=== PATIENT | female | born 1975 | race Caucasian/White ===

== ENCOUNTER → 2020-02-11 08:12 | Outpatient (BNVA) | payer SELFPAY | PROVIDERS: Family Provider Nurse Practitioner Family; Visit Provider Orthopaedic Surgery | DX: S62.306A Unspecified fracture of fifth metacarpal bone, right hand, initial encounter for closed fracture (principal); S62.304A Unspecified fracture of fourth metacarpal bone, right hand, initial encounter for closed fracture; W23.0XXA Caught, crushed, jammed, or pinched between moving objects, initial encounter | CPT/HCPCS: 73130 ==

== ENCOUNTER 2020-02-11 10:00 | Outpatient (CLI) | payer OTHER, SELFPAY | END 2020-02-11 10:01 | LOC: SPT 01-02 04:47 | PROVIDERS: PCP Registered Nurse; Referring Provider Orthopaedic Surgery; Visit Provider Orthopaedic Surgery | DX: Z46.89 Encounter for fitting and adjustment of other specified devices (principal); S62.306D Unspecified fracture of fifth metacarpal bone, right hand, subsequent encounter for fracture with routine healing; S62.304D Unspecified fracture of fourth metacarpal bone, right hand, subsequent encounter for fracture with routine healing; X58.XXXD Exposure to other specified factors, subsequent encounter | CPT/HCPCS: L3984 ==

== ENCOUNTER 2020-12-14 05:52 | Emergency (ER) | payer OTHER, SELFPAY ==
[2020-12-14 05:53] VITALS: BP 114/79; PULSE 86; RESP 15; TEMP 36.7; O2SAT 97; BMI 21.9
--- NOTE | 2020-12-14 06:04 | XR_ITS ---
WS: [id number] Portable AP upright chest, 12/14/2020 Clinical Data: dyspnea/cough Comparison: None. Findings: No nodules, masses or effusions are seen. The heart is normal. The pulmonary vascularity is not increased. No pneumonia or pneumothorax is seen. There are clips in the right upper quadrant fro m a cholecystectomy. XR/XR chest 1V portable [id number] Impression: Negative chest.
[2020-12-14 06:05] VITALS: BP 98/71; PULSE 85; RESP 18; O2SAT 97
[2020-12-14] MEDS: vancomycin 1,000 MG in sodium chloride 0.9% 250 ML 250 MG IV (06:13)
--- NOTE | 2020-12-14 06:14 | W.ED.SKABFB ---
HPI - Skin/Abscess/Foreign Bdy General: Chief complaint: Skin/Abscess/Foreign Body Stated complaint: INSECT BITE Time Seen by Provider: 12/14/20 06:00 History of Present Illness: HPI narrative: 45-year-old female presents to the emergency room with swollen painful arm. Patient states yesterday she thought she had a bug bite in the proximal portion of her left forearm medial part of the antecubital fossa. She went to another local emergency room was started on some oral antibiotics. She seemed to be fine throughout the rest of the day and then got markedly worse overnight to the point where it woke her up in the early hours this morning around 1 AM she could not me feel or move her fingertips and the swelling was advanced into her hand and into her proximal arm. On arrival here she has exquisite pain with passive range of motion and swelling to the proximal portion of the bicep where the skin is tense. There is no induration or erythema however. She is not had any fever sweats or chills has not recently been ill. complaint: insect bite/sting Onset (ago): hour(s) Location: LUE Severity: severe Quality: burning Pain Consistency: constant Exacerbating factors: none Context: none Associated symptoms: Deny arthralgias, chills, cough, fever(s), itching, myalgias, nausea, rigidity, short of breath or vomiting Treatments prior to arrival: antibiotic Review of Systems Const: Denies: fever(s) or chills ENMT: Denies: throat pain, ear or mastoid pain, nasal discharge or nasal congestion Card: Denies: chest pain, edema, dyspnea on exertion or orthopnea Resp: Denies: dyspnea, productive cough or non-productive cough GI: Denies: nausea or vomiting : Denies: flank pain, difficulty voiding, dysuria, urinary frequency or urinary urgency Skin/Breast: Denies: rash or pruritus PFSH ED PFSH: Medical History Chronic constipation Family History Other CHF (congestive heart failure) Cancer Diabetes Social History Smoking and tobacco status: current every day smoker cigarettes Packs smoked per day: 1 Alcohol intake: never Adopted: No Caregiver/support person: No Lives independently: No History of recent travel: No Sexually active: Yes Current gender identity: Female Physical Exam Const: COMMON NORMALS: no acute distress GENERAL APPEARANCE: cooperative ORIENTATION/CONSCIOUSNESS: Yes awake, Yes oriented to person, Yes oriented to place and Yes oriented to time HENMT: COMMON NORMALS: normocephalic and atraumatic HEAD & SCALP: normocephalic and atraumatic Neck/C-Spine: COMMON NORMALS: no JVD Lymph: LYMPHATIC: no lymphadenopathy noted and no lymphedema noted Resp: COMMON NORMALS: normal respiratory effort, No retractions, No use of accessory muscles and clear to auscultation bilaterally AUSCULTATION: clear to auscultation bilaterally Cardio: COMMON NORMALS: no JVD, regular rate, regular rhythm and No murmurs present (Cardio) RATE: regular rate RHYTHM: regular rhythm GI: COMMON NORMALS: Soft to palpation and No hepatosplenomegaly present AUSCULTATION: Yes normoactive bowel sounds PALPATION: Yes Soft to palpation, No Tenderness to palpation present (GI), No Guarding due to palpation present (GI) and Yes No hepatosplenomegaly present Extremity: NARRATIVE EXTREMITY EXAM: Severe pain with passive range of motion loss of sensation to the distal extremities significant tension on the skin and swelling on the hand forearm and distal aspect of the upper arm on the left extremity to the level of the proximal bicep. No induration. There is some bullae on the medial aspect of the antecubital fossa where patient identifies the original bug bites. There is a little bit of an abrasion at the tip of the third finger on the left hand although there is no purulent drainage no subungual hematoma or abscess. No abscess at the tip of the finger noted. Neuro: SENSORIUM/ORIENTATION: Yes oriented to person, Yes oriented to place and Yes oriented to time Skin: COMMON NORMALS: no rashes or lesions noted GENERAL SKIN EXAM: no rashes or lesions noted Course Vital Signs: Vital signs: Vital Signs Temperature 98.0 F 12/14/20 05:53 Pulse Rate 105 H 12/14/20 07:32 Respiratory Rate 16 12/14/20 07:32 Blood Pressure 109/73 12/14/20 07:32 Pulse Oximetry 98 12/14/20 07:32 MDM - Skin/Abscess/Foreign Bdy MDM Narrative: Medical decision making narrative: Medial after encountering this patient and contact the Dr. Seay my concerns that she had a compartment syndrome precipitated by infection. She had passive range of motion pain. Dr. Muir came in and expressed the same concern see her consultation note. Arrangements were made to transfer the patient to bring fill hospital to evaluate by hand surgeon. Patient was cultured and started on IV antibiotics given pain medications. Lab Data: Labs: Lab Results 12/14/20 12/14/20 Range/Units 06:11 06:11 WBC 15.3 H (4.0-10.0) 10^3/ uL RBC 5.12 (4.1-5.3) 10^6/u L Hgb 16.3 H (11.5-15.3) g/dL Hct 47.9 H (37.0-47.0) % MCV 93.6 (81-99) fL MCH 31.8 (28.0-34.0) pg MCHC 34.0 (30.0-36.0) g/dL RDW 12.9 (12.1-15.1) % Plt Count 216 (130-400) 10^3/c mm MPV 10.4 (7.4-10.4) fL Neut % (Auto) 74.6 % Lymph % (Auto) 16.4 % [place] % (Auto) 6.7 % Eos % (Auto) 1.6 % Baso % (Auto) 0.3 % Neut # (Auto) 11.41 H (1.8-7.7) 10^3/u L Lymph # (Auto) 2.5 (0.8-4.8) 10^3/u L [place] # (Auto) 1.0 H (0.2-0.9) 10^3/u L Eos # (Auto) 0.3 (0.0-0.8) 10^3/u L Baso # (Auto) 0.0 (0.0-0.1) 10^3/u L Nucleated RBC % (a uto) 0 % Nucleated RBCs # 0.0 /100WBC Sodium 137 (136-145) mmol/L Potassium 4.7 (3.5-5.1) mmol/L Chloride 104 (98-107) mmol/L Carbon Dioxide 28 (22-29) mmol/L Anion Gap 9.7 (5-19) BUN 11 (6-20) mg/dL Creatinine 0.5 (0.5-0.9) mg/dL GFR Calculation 134.7 H (90-130) mL/min Glucose 141 H (65-115) mg/dL Calculated Osmolal ity 286 (285-295) mOsm/k g Calcium 8.2 L (8.5-10.5) mg/dL Total Bilirubin 0.4 (0.15-1.2) mg/dL AST 18 (0-32) U/L ALT 9 (0-33) U/L Alkaline Phosphata se 107 H (35-105) IU/L Creatine Kinase 61 (26-192) U/L Total Protein 6.1 L (6.6-8.7) g/dL Albumin 3.2 L (3.5-5.2) g/dL Globulin 2.9 (1.3-4.6) g/dL Discharge Plan Discharge Patient Disposition: Xfer Short-Term Hosp Clinical Impression: Compartment syndrome of forearm, Compartment syndrome of hand Condition: Stable Referrals: Santosh Turner FNP [Primary Care Provider] - Coding Level of Care Code ED Loan Associate for [employer] Fwd Exam Comprehensive
[2020-12-14] MEDS: ondansetron 2 mg/ML SDV 2 mL 4 MG IVP (06:18)
[2020-12-14 06:19] VITALS: RESP 18; O2SAT 96
[2020-12-14] MEDS: morphine 4 mg/mL SDV 1 mL 6 MG IVP (06:19)
[2020-12-14 06:32] LABS: Basophils % 0.3 %; Eosinophils # 0.3 10^3/uL (0.0-0.8); Eosinophils % 1.6 %; Hematocrit 47.9 % (37.0-47.0); Hemoglobin 16.3 g/dL (11.5-15.3); Lymphocytes # 2.5 10^3/uL (0.8-4.8); Lymphocytes % 16.4 %; Mean Corpuscular Hemoglobin 31.8 pg (28.0-34.0); Mean Corpuscular Volume 93.6 fL (81-99); Mean Platelet Volume 10.4 fL (7.4-10.4); Monocytes % 6.7 %; Neutrophils # 11.41 10^3/uL (1.8-7.7); Neutrophils % 74.6 %; Nucleated Red Blood Cells % 0 %; Platelet Count 216 10^3/cmm (130-400); Red Blood Count 5.12 10^6/uL (4.1-5.3); Red Cell Distribution Width 12.9 % (12.1-15.1); White Blood Count 15.3 10^3/uL (4.0-10.0)
[2020-12-14 06:55] LABS: Albumin Level 3.2 g/dL (3.5-5.2); Alkaline Phosphatase 107 IU/L (35-105); Anion Gap 9.7 (5-19); Aspartate Amino Transferase 18 U/L (0-32); Blood Urea Nitrogen 11 mg/dL (6-20); Calcium 8.2 mg/dL (8.5-10.5); Carbon Dioxide 28 mmol/L (22-29); Chloride 104 mmol/L (98-107); Creatine Phosphokinase 61 U/L (26-192); Globulin 2.9 g/dL (1.3-4.6); Glomerular Filtration Rate 134.7 mL/min (90-130); Glucose 141 mg/dL (65-115); Osmolality Calculated 286 mOsm/kg (285-295); Potassium 4.7 mmol/L (3.5-5.1); Sodium 137 mmol/L (136-145); Total Bilirubin 0.4 mg/dL (0.15-1.2); Total Protein 6.1 g/dL (6.6-8.7)
[2020-12-14 07:06] LABS: Alanine Aminotransferase 9 U/L (0-33)
[2020-12-14] MEDS: morphine 4 mg/mL SDV 1 mL IVP (07:29)
[2020-12-14 07:32] VITALS: BP 109/73; PULSE 105; RESP 16; O2SAT 98
--- NOTE | 2020-12-14 12:58 | PM.CONSULT ---
Providers/Reason For Consult Consulting Physician/Specialty*: Dr. Shae Seay - Orthopedics Reason for Consult*: Compartment syndrome right upper extremity Requesting Physician: Norman Barragan MD Primary Care Provider: GRETCHEN Dexter History of Present Illness History of Present Illness Aracelis Bonilla is a 45 year old female who presented to the emergency department with a swollen painful right upper extremity. By report, the patient presented to another local emergency department yesterday with what she thought was a bug bite in the antecubital area of her left forearm. When she presented to the emergency room, she was reportedly started on oral antibiotics and discharged to home. The patient noted she was fine throughout the rest of the day, but she markedly worsened overnight. She woke up in the early hours approximately 1 AM and stated that she could not feel or move her fingertips. The swelling was advancing rapidly into her hand and into her proximal arm. The patient presented to our emergency room with the above findings and at the time of presentation, she had exquisite pain with passive range of motion. She had swelling to the distal arm and the skin was tense. There was no erythema or induration. I was called by the emergency department to come and evaluate the patient emergently for compartment syndrome. She had no significant injury or evidence of fracture or crush injury. Upon my presentation to the emergency department, the patient continued to have exquisite pain to passive range of motion of the fingers. She had had morphine IV, and I was able to slightly move her fingers which apparently was not the case previously. Upon evaluation most impressive was that her palm was significantly swollen. She also had swelling out into the tips of all of her fingers. No open wound or laceration was visualized. The forearm was tense and swollen. Again there was a small fracture blister in the antecubital area and when I first arrived, the patient had swelling and pain into the midportion of her arm and by the time she left the emergency department, it had progressed somewhat proximally as well. When queried regarding IV drug use, the patient notes that she has not used any sort of IV substance since 2 to 3 days prior, and she states that that was in the opposite arm. The patient is right-handed. Review of Systems Const: Denies: fever(s) or chills ENMT: Denies: throat pain, ear or mastoid pain, nasal discharge or nasal congestion Card: Denies: chest pain, edema, dyspnea on exertion or orthopnea Resp: Denies: dyspnea, productive cough or non-productive cough GI: Denies: nausea or vomiting : Denies: flank pain, difficulty voiding, dysuria, urinary frequency or urinary urgency Skin/Breast: Denies: rash or pruritus Meds/Allergies Home Medications and Allergies Home Medications Medication Instructions Recorded Confirmed Last Taken Type buspirone 10 mg tablet 10 mg PO BID 30 Days #60 tab 07/24/20 07/24/20 Unknown Rx polyethylene glycol 3350 17 17 g PO DAILY #119 g 07/24/20 07/24/20 Unknown Rx gram/dose oral powder Allergies Allergy/AdvReac Type Severity Reaction Status Date / Time albuterol [From Combivent] Allergy Unknown Verified 07/24/20 14:34 codeine Allergy Unknown Verified 07/24/20 14:34 cortisone Allergy Unknown Verified 07/24/20 14:34 ipratropium [From Combivent] Allergy Unknown Verified 07/24/20 14:34 Macrolide Antibiotics Allergy Unknown Verified 07/24/20 14:34 morphine Allergy Unknown Verified 07/24/20 14:34 Penicillins Allergy Unknown Verified 06/13/20 14:16 PFSH Acute PFSH: Medical History Chronic constipation Family History Other CHF (congestive heart failure) Cancer Diabetes Social History Smoking and tobacco status: current every day smoker cigarettes Packs smoked per day: 1 Alcohol intake: never Adopted: No Caregiver/support person: No Lives independently: No History of recent travel: No Sexually active: Yes Current gender identity: Female Dietary Habits: Current diet type/program: regular Vitals/I&O/Wt Last Vital Signs Temp 98.0 F 12/14/20 05:53 Pulse 105 H 12/14/20 07:32 Resp 16 12/14/20 07:32 BP 109/73 12/14/20 07:32 Pulse Ox 98 12/14/20 07:32 12/13/20 12/14/20 12/14/20 22:59 06:59 14:59 Intake Total 250 / 250 Balance 250 / 250 Weight last 48 hrs Weight 120 lb Physical Exam Const: COMMON NORMALS: patient oriented x3 and alert GENERAL APPEARANCE: cooperative, in distress and anxious NUTRITIONAL APPEARANCE: thin ORIENTATION/CONSCIOUSNESS: Yes awake HENMT: COMMON NORMALS: normocephalic and atraumatic HEAD & SCALP: normocephalic and atraumatic Eye: GENERAL EYE: appearance normal, both eyes and all related structures Chest: COMMONS NORMALS: normal inspection of the chest Resp: COMMON NORMALS: normal respiratory effort EFFORT & INSPECTION: Yes able to speak in complete sentences and Yes symmetric chest movement Extremity: NARRATIVE EXTREMITY EXAM: Patient was seen and evaluated in the emergency department. Findings were as noted in history of present illness. She had severe swelling in the forearm. The skin was tense and taut. She was tender to any palpation about the skin. There was no erythema. There was no induration. The swelling continued into the hand where the palm was swollen to more than double its normal size. She had swelling on the dorsum of the hand and throughout the fingers all the way to the fingertips. The swelling continued up into the distal portion of the arm and what appeared to be extending more proximally. The patient had pain with passive motion of the fingers. This was consistent with a compartment syndrome type presentation. This most likely is due to a potential infectious etiology, however, there is no erythema or induration about the arm. Regardless, she has all the symptoms and findings of compartment syndrome and it is felt that she would need to be treated for this including the hand. Neuro: COMMON NORMALS: patient oriented x3 SENSORIUM/ORIENTATION: Yes alert Psych: COMMON NORMALS: mental status grossly normal APPEARANCE: Yes grossly normal ATTITUDE: Yes calm and Yes engaged ATTENTION/CONCENTRATION: Yes attention grossly intact Skin: COMMON NORMALS: no rashes or lesions noted GENERAL SKIN EXAM: no rashes or lesions noted Data Micro: Micro: Microbiology 12/14/20 06:30 Blood Culture - Pr eliminary Blood [facility] 12/14/20 06:11 Blood Culture - Pr eliminary Blood [facility] A&P Assessment and plan (1) Compartment syndrome of forearm: Patient was seen and evaluated in the emergency department for compartment syndrome . Although this patient is not classic for compartment syndrome, in other words, she does not have history of a crush injury or fracture that might result in compartment syndrome, she does have all findings consistent with complete paresthesia of the upper extremity and pain with passive range of motion. She has pain out of proportion to what might be an insect bite. She denies that she has injected into this area. Without classic findings of infection, it is difficult to call this infectious etiology, however, this is most likely. The infection or reaction to the insect bite is undoubtedly producing symptoms and physical findings consistent with compartment syndrome. Again although the reason is not classic, the presentation appears to be. Discussion was undertaken regarding possible compartment pressure measuring, however, the plan was to get her discharged out to a hand surgeon as soon as possible. I spoke with Dr. Burroughs in [place] at [facility], and he agreed to accept the patient. Status: Acute (2) Compartment syndrome of hand: Status: Acute Consult Attestations Medical Necessity Statement: Patient is to be transferred to a higher level of care and the expertise of a hand surgeon. Coding Level of Care Code Acute Embedded Systems Engineer for Nena Padilla Diagnoses Compartment syndrome of forearm T79.A19A Compartment syndrome of hand T79.A19A
== END 2020-12-14 07:40 | disposition short-term general hospital (02) ==
PROVIDERS: Emergency Provider Family Medicine; PCP Registered Nurse
DX: T79.A12A Traumatic compartment syndrome of left upper extremity, initial encounter (principal); F17.210 Nicotine dependence, cigarettes, uncomplicated; X58.XXXA Exposure to other specified factors, initial encounter
CPT/HCPCS: 71045; 80053; 82550; 85025; 87040; 96365; 96375; 96376; 99285; J2270; J2405; J3370; J7050